=== PATIENT | male | born 1985 | race Caucasian/White ===

== ENCOUNTER 2019-09-20 11:36 | Emergency (ER) | payer OTHER ==
[~2019-09-20] VITALS: Ht 185.4 cm; Wt 86.0 kg
[~2019-09-20 11:36] MED LIST: CYCL10TA7 PO; IBUP-1542 PO
[2019-09-20 11:48] VITALS: BP 124/58; PULSE 78; RESP 18; Ht 185.4 cm; Wt 86.0 kg
[2019-09-20] MEDS ORDERED: KETOROLAC 30 MG INJ IM STA (12:43)
== END 2019-09-20 13:32 | disposition home or self-care (01) ==
LOC: FTE 11:36
DX: M54.5 Low back pain (principal)
CPT/HCPCS: 96372; J1885; Z7502